=== PATIENT | male | born 1970 | race American Indian/Alaskan Native ===

== ENCOUNTER 2016-08-28 11:00 | Inpatient (IN) | payer BC, OTHER ==
[2016-08-28] MEDS ORDERED: DULCOLAX PR PRN (18:49)
[2016-08-28] MEDS ORDERED: TYLENOL PO PRN (18:49)
[2016-08-28] MEDS ORDERED: MILK OF MAGNESIA PO PRN (18:49)
[2016-08-28] MEDS ORDERED: DILAUDID IV PRN (18:49)
[2016-08-28] MEDS ORDERED: ZOFRAN IV PRN (18:49)
[2016-08-28] MEDS ORDERED: D5/0.45NS 1,000 ML IV SCH (19:00)
[2016-08-28] MEDS: PEPCID IV SCH (21:06)
--- NOTE | 2016-08-28 21:53 | Event Note ---
Date: 08/28/16 See H/p in reports Rt Ureteral stone Rt Hydronephrosis No Sig PMH Ureteral stone -2 yrs ago removed surgically
[2016-08-28 22:00] LABS: Basophils % (Auto) 0.4 % (0.0-1.8); Eosinophils % (Auto) 0.5 % (0.0-4.3); Hematocrit 43.3 % (35.5-45.6); Hemoglobin 14.4 gm/dl (11.8-15.2); Mean Corpuscular HGB Conc 33 % (32-34); Mean Corpuscular Hemoglobin 29 pg (28-32); Mean Corpuscular Volume 89 fl (84-94); Platelet Count 174 K/mm3 (140-440); Red Blood Count 4.88 M/mm3 (3.65-5.03); Red Cell Distribution Width 13.4 % (13.2-15.2); White Blood Count 5.8 K/mm3 (4.5-11.0)
[2016-08-28] MEDS ORDERED: APRESOLINE IV PRN (22:00)
[2016-08-28 22:16] LABS: Alanine Aminotransferase 23 units/L (7-56); Albumin/Globulin Ratio 1.3 %; Alkaline Phosphatase 42 units/L (35-129); Anion Gap 18 mmol/L; BUN/Creatinine Ratio 8.18; Blood Urea Nitrogen 9 mg/dL (9-20); Carbon Dioxide 27 mmol/L (22-30); Chloride 99.1 mmol/L (98-107); Glucose 91 mg/dL (75-100); Potassium 3.7 mmol/L (3.6-5.0); Sodium 140 mmol/L (137-145); Total Protein 7.2 g/dL (6.3-8.2)
[2016-08-28] MEDS: ROCEPHIN/NS 2 GM/100 ML 2 GM/100 ML BAG IV SCH (23:00)
[2016-08-28 23:03] LABS: Bilirubin,Urine NEG (Negative); Blood,Urine MOD (Negative); Ketones,Urine NEG (Negative); Leukocyte Esterase,Urine NEG (Negative); Mucus,Urine FEW /HPF; Nitrite,Urine NEG (Negative); Protein,Urine <15 mg/dL mg/dL (Negative); Urobilinogen,Urine < 2.0 mg/dL (<2.0)
[2016-08-29 05:23] LABS: Basophils % (Auto) 0.5 % (0.0-1.8); Eosinophils % (Auto) 0.8 % (0.0-4.3); Hematocrit 44.9 % (35.5-45.6); Hemoglobin 14.9 gm/dl (11.8-15.2); Mean Corpuscular HGB Conc 33 % (32-34); Mean Corpuscular Hemoglobin 29 pg (28-32); Mean Corpuscular Volume 88 fl (84-94); Platelet Count 185 K/mm3 (140-440); Red Cell Distribution Width 13.4 % (13.2-15.2); White Blood Count 6.1 K/mm3 (4.5-11.0)
[2016-08-29 06:15] LABS: Anion Gap 19 mmol/L; Blood Urea Nitrogen 9 mg/dL (9-20); Calcium 9.1 mg/dL (8.4-10.2); Carbon Dioxide 25 mmol/L (22-30); Chloride 102.7 mmol/L (98-107); Glucose 102 mg/dL (75-100); Potassium 4.2 mmol/L (3.6-5.0); Sodium 142 mmol/L (137-145)
[2016-08-29] MEDS ORDERED: XYLOCAINE MPF 2% ONE (07:20)
[2016-08-29] MEDS ORDERED: ZOFRAN ONE (07:20)
[2016-08-29] MEDS ORDERED: DECADRON ONE (07:20)
[2016-08-29] MEDS ORDERED: DIPRIVAN 10 MG/ML IV ONE (07:20)
--- NOTE | 2016-08-29 07:26 | Anesthesia Day of Surgery ---
Anesthesia Day of Surgery - Day of Surgery Patient Examined: Yes Patient H&P Reviewed: Yes Patient is NPO: Yes
--- NOTE | 2016-08-29 07:26 | Anesthesia Consultation ---
Anesthesia Consult and Med Hx Date of service: 08/29/16 - Airway Anesthetic Teeth Evaluation: Good ROM Head & Neck: Adequate Mental/Hyoid Distance: Adequate Mallampati Class: Class II Intubation Access Assessment: Probably Good - Pulmonary Exam CTA: Yes - Pre-Operative Health Status ASA Pre-Surgery Classification: ASA2 Proposed Anesthetic Plan: General - Pulmonary Hx Smoking: No Hx Asthma: No Hx Pneumonia: No Hx Sleep Apnea: No (not officially diagnosed) - Cardiovascular System Hx Hypertension: No (consistently elevated over the last few days) - Endocrine Hx Renal Disease: Yes (ureteral stones) Hx End Stage Renal Disease: No - Other Systems Hx Alcohol Use: Yes Hx Substance Use: No Hx Cancer: No Hx Obesity: Yes (BMI 34)
--- NOTE | 2016-08-29 07:54 | Consultation ---
History of Present Illness - Reason for Consult Consult date: 08/31/16 - History of Present Illness Patient 46 years old admitted with fevers hypertension pain with a stone right ureter 6mm. he was seen at a er [facility]. Creatinine elevated 1.5 there. Currently he has minimal flank pain improved with IV antibiotics with no fever. No radiating pain no exacerbating symptoms. Pain was mainly in right flank. No chest pain no shortness of breath no nausea vomiting diarrhea constipation. No current fevers or chills. Medications and Allergies Allergies Allergy/AdvReac Type Severity Reaction Status Date / Time PRUNE JUICE Allergy Severe Swelling Uncoded 03/27/14 07:43 Home Medications Medication Instructions Recorded Confirmed Last Taken Type Tamsulosin [Flomax] 1 tab PO DAILY 03/24/14 03/27/14 03/25/14 History Ciprofloxacin HCl [Ciprofloxacin 500 mg PO Q12H #14 tab 08/30/16 Unknown Rx TAB] Oxycodone HCl/Acetaminophen 1 tab PO BID PRN #10 tablet 08/30/16 Unknown Rx [Percocet 10/325 mg] Active Meds: Active Medications Acetaminophen (Tylenol) 650 mg PO Q4H PRN PRN Reason: Pain MILD(1-3)/Fever >100.5/LEE Bisacodyl (Dulcolax) 10 mg [place] QDAY PRN PRN Reason: Constipation unrelieved by MOM Famotidine (Pepcid) 20 mg IV BID [facility] Last Admin: 08/28/16 21:06 Dose: 20 mg Fentanyl (Sublimaze) 50 mcg IV Q5MIN PRN PRN Reason: Pain , Severe (7-10) Stop: 08/29/16 13:00 Hydralazine HCl (Apresoline) 10 mg IV Q2H PRN PRN Reason: GIVE FOR SBP>165 Hydromorphone HCl (Dilaudid) 1 mg IV Q3H PRN PRN Reason: Pain , Severe (7-10) Hydromorphone HCl (Dilaudid) 0.25 mg IV Q10MIN PRN PRN Reason: Pain, Moderate (4-6) Stop: 08/29/16 13:00 Dextrose/Sodium Chloride (D5/0.45ns) 1,000 mls @ 42 mls/hr IV DIRECT [facility] Last Admin: 08/28/16 20:55 Dose: 42 mls/hr Ceftriaxone Sodium (Rocephin/Ns 2 Gm/100 Ml) 2 gm in 100 mls @ 200 mls/hr IV Q24H [facility] PRN Reason: Protocol Last Admin: 08/28/16 23:00 Dose: 200 mls/hr Sodium Chloride (Nacl 0.9% 1000 Ml) 1,000 mls @ 100 mls/hr IV DIRECT [facility] Last Admin: 08/29/16 07:45 Dose: 100 mls/hr Magnesium Hydroxide (Milk Of Magnesia) 30 ml PO Q4H PRN PRN Reason: Constipation Ondansetron HCl (Zofran) 4 mg IV Q8H PRN PRN Reason: N/V unrelieved by Reglan Review of Systems Constitutional: fever, chills Genitourinary Male: flank pain Exam - Constitutional Vitals: Temp Pulse Resp BP Pulse Ox 98.9 F 64 18 157/97 97 08/29/16 00:00 08/29/16 00:00 08/29/16 00:00 08/29/16 00:00 08/29/16 00:00 General appearance: Present: no acute distress - EENT Eyes: Present: EOM intact ENT: hearing intact, clear oral mucosa - Neck Neck: Present: supple - Respiratory Respiratory effort: normal - Extremities Extremities: no ischemia, No edema - Abdominal General gastrointestinal: Present: soft, non-tender, non-distended - Psychiatric Psychiatric: appropriate mood/affect, intact judgment & insight - Neurologic Neurologic: moves all extremities Results - Labs CBC & Chem 7: 08/29/16 05:09 08/29/16 05:09 Labs: Abnormal lab results 08/28/16 08/29/16 08/29/16 Range/Units 20:48 05:09 05:09 RBC 5.10 H (3.65-5.03) M/mm3 Lymph % (Auto) 46.7 H 52.9 H (13.4-35.0) % [place] % (Auto) 10.3 H 9.1 H (0.0-7.3) % Seg Neutrophils % 36.7 L (40.0-70.0) % Glucose 102 H (75-100) mg/dL Assessment and Plan RIGHT URET STONE 6MM FEVER / AKD / PAIN - plan cysto, stent - - Stage for future treatment of stone disc must f/u
--- NOTE | 2016-08-29 07:55 | Post Operative Note ---
Date of procedure: 08/29/16 Pre-op diagnosis: right ureteral stone, fever, akd, pain, htn Post-op diagnosis: same Findings: same, uret stone Procedure: cysto, rpg, stent right; 6x28 Anesthesia: [place]ENT[place] Surgeon: RONY STREET Estimated blood loss: minimal Pathology: none Condition: stable Disposition: PACU
[2016-08-29] MEDS ORDERED: NACL 0.9% 1000 ML 1,000 ML IV SCH (08:00)
[2016-08-29] MEDS ORDERED: SUBLIMAZE IV PRN (08:00)
[2016-08-29] MEDS ORDERED: DILAUDID IV PRN (08:00)
--- NOTE | 2016-08-29 08:06 | Progress Note ---
Assessment and Plan Assessment and plan: --Right ureteral stone with hydronephrosis s/p right electric stent placement Continue IV fluids and pain medications and empiric antibiotics Follow cultures --DVT prophylaxis with Lovenox Disposition; closely monitor 24 hours and possible discharge home tomorrow if stable Plan of care discussed with the patient and family member at the bedside as well as the nurse History Interval history: Patient underwent urology procedure this morning Status post cystoscopy, retrograde pyelography, and right stent placement Patient feels better, no new complaints Alert awake oriented 3 not in acute distress Vital signs reviewed Hospitalist Physical - Constitutional Vitals: Temp Pulse Resp BP Pulse Ox 98.9 F 64 18 157/97 97 08/29/16 00:00 08/29/16 00:00 08/29/16 00:00 08/29/16 00:00 08/29/16 00:00 General appearance: Present: no acute distress, well-nourished, obese - EENT Eyes: Present: PERRL, EOM intact - Neck Neck: Present: supple, normal ROM - Respiratory Respiratory effort: normal Respiratory: negative: rales, rhonchi, wheezing - Cardiovascular Rhythm: regular Heart Sounds: Present: S1 & S2 - Extremities Extremities: no ischemia, pulses intact, pulses symmetrical Peripheral Pulses: within normal limits - Abdominal General gastrointestinal: soft, non-tender, non-distended, normal bowel sounds - Integumentary Integumentary: Present: clear, warm - Psychiatric Psychiatric: appropriate mood/affect, cooperative - Neurologic Neurologic: CNII-XII intact, moves all extremities Results - Labs CBC & Chem 7: 08/29/16 05:09 08/29/16 05:09 Labs: Laboratory Last Values WBC 6.1 K/mm3 (4.5-11.0) 08/29/16 05:09 RBC 5.10 M/mm3 (3.65-5.03) H 08/29/16 05:09 Hgb 14.9 gm/dl (11.8-15.2) 08/29/16 05:09 Hct 44.9 % (35.5-45.6) 08/29/16 05:09 MCV 88 fl (84-94) 08/29/16 05:09 MCH 29 pg (28-32) 08/29/16 05:09 MCHC 33 % (32-34) 08/29/16 05:09 RDW 13.4 % (13.2-15.2) 08/29/16 05:09 Plt Count 185 K/mm3 (140-440) 08/29/16 05:09 Lymph % (Auto) 52.9 % (13.4-35.0) H 08/29/16 05:09 [place] % (Auto) 9.1 % (0.0-7.3) H 08/29/16 05:09 Eos % (Auto) 0.8 % (0.0-4.3) 08/29/16 05:09 Baso % (Auto) 0.5 % (0.0-1.8) 08/29/16 05:09 Lymph # 3.2 K/mm3 (1.2-5.4) 08/29/16 05:09 [place] # 0.6 K/mm3 (0.0-0.8) 08/29/16 05:09 Eos # 0.0 K/mm3 (0.0-0.4) 08/29/16 05:09 Baso # 0.0 K/mm3 (0.0-0.1) 08/29/16 05:09 Seg Neutrophils % 36.7 % (40.0-70.0) L 08/29/16 05:09 Seg Neutrophils # 2.2 K/mm3 (1.8-7.7) 08/29/16 05:09 Sodium 142 mmol/L (137-145) 08/29/16 05:09 Potassium 4.2 mmol/L (3.6-5.0) 08/29/16 05:09 Chloride 102.7 mmol/L (98-107) 08/29/16 05:09 Carbon Dioxide 25 mmol/L (22-30) 08/29/16 05:09 Anion Gap 19 mmol/L 08/29/16 05:09 BUN 9 mg/dL (9-20) 08/29/16 05:09 Creatinine 1.2 mg/dL (0.8-1.5) 08/29/16 05:09 Estimated GFR > 60 ml/min 08/29/16 05:09 BUN/Creatinine Ratio 7.50 % 08/29/16 05:09 Glucose 102 mg/dL (75-100) H 08/29/16 05:09 Calcium 9.1 mg/dL (8.4-10.2) 08/29/16 05:09 Total Bilirubin 0.30 mg/dL (0.1-1.2) 08/28/16 20:48 AST 26 units/L (5-40) 08/28/16 20:48 ALT 23 units/L (7-56) 08/28/16 20:48 Alkaline Phosphatase 42 units/L (35-129) 08/28/16 20:48 Total Protein 7.2 g/dL (6.3-8.2) 08/28/16 20:48 Albumin 4.0 g/dL (3.9-5) 08/28/16 20:48 Albumin/Globulin Ratio 1.3 % 08/28/16 20:48 Urine Color Yellow (Yellow) 08/28/16 22:30 Urine Turbidity Clear (Clear) 08/28/16 22:30 Urine pH 7.0 (5.0-7.0) 08/28/16 22:30 Ur Specific [place] 1.014 (1.003-1.030) 08/28/16 22:30 Urine Protein <15 mg/dl mg/dL (Negative) 08/28/16 22:30 Urine Glucose (UA) Neg mg/dL (Negative) 08/28/16 22:30 Urine Ketones Neg mg/dL (Negative) 08/28/16 22:30 Urine Blood Mod (Negative) 08/28/16 22:30 Urine Nitrite Neg (Negative) 08/28/16 22:30 Urine Bilirubin Neg (Negative) 08/28/16 22:30 Urine Urobilinogen < 2.0 mg/dL (<2.0) 08/28/16 22:30 Ur Leukocyte Esterase Neg (Negative) 08/28/16 22:30 Urine WBC (Auto) 3.0 /HPF (0.0-6.0) 08/28/16 22:30 Urine RBC (Auto) 17.0 /HPF (0.0-6.0) 08/28/16 22:30 Urine Mucus Few /HPF 08/28/16 22:30
[2016-08-29] MEDS ORDERED: OMNIPAQUE 300 MG/50 ML (CATH LAB) IV ONE (08:15)
--- NOTE | 2016-08-29 09:01 | Post Anesthesia Evaluation ---
- Post Anesthesia Evaluation Patient Participated: Yes Airway Patent: Yes Stable Respiratory Function: Yes Temp > 96.8F: Yes Pain Manageable: Yes Adequeate Hydration: Yes Anesthesia Complications: No Block Receding Appropriately: Not Applicable
[2016-08-29] MEDS ORDERED: FLOMAX PO SCH (10:00)
--- NOTE | 2016-08-29 10:13 | History and Physical Report ---
CHIEF COMPLAINT: Right flank pain. HISTORY OF PRESENT ILLNESS: A 46-year-old male, pleasant came from Urologist's office for right ureter calculus with mild hydronephrosis. Ultrasound was done at the office. The patient was sent to [facility] for Direct admit. No fever, no chills. Pain 7 on a scale of 1-10. The patient had a similar episode 2 years ago . No fever, no chills. PAST MEDICAL HISTORY: Ureteral stone 1 to 2 years ago. PAST SURGICAL HISTORY: Unknown PERSONAL HISTORY: He does not smoke, alcohol very occasionally. FAMILY HISTORY: No hypertension, no diabetes. REVIEW OF SYSTEMS: Significant for right flank pain. No fever. No chills. A 14-point review of systems done. PHYSICAL EXAMINATION: GENERAL: Middle-aged male, cooperative during examination. VITAL SIGNS: Blood pressure is 141/92, temperature of 98.6, pulse is 76, respirations of 16. HEENT: Unremarkable. Pupils equal and reactive. NECK: Supple, no lymphadenopathy, no thyromegaly. LUNGS: Clear to auscultation and percussion. Good air entry. CARDIOVASCULAR: S1, S2 heard. No gallop, no murmur, no rub. Apical impulse in left fifth intercostal space and midclavicular line. ABDOMEN: Soft and benign. No hepatosplenomegaly. No guarding, no rigidity. Hernial orifices are normal. EXTREMITIES: Good pedal pulses. No pedal edema. CENTRAL NERVOUS SYSTEM: Alert and oriented x 4. Nonfocal exam. SKIN: Normal. LABORATORY DATA: White count is 5800, H and H is 14.4 and 43.3, platelet count is 174,000. Electrolytes are normal. Urine significant for 17 RBCs, WBC 3.0. ASSESSMENT AND PLAN: 1. Right ureteral stone, to be removed. Hydronephrosis present. The patient to get the procedure done in a.m. 2. Mild hydronephrosis, should be cleared with removal of the stone. Right kidney should not be damaged because of partial obstruction. 3. Urinary tract infection, unlikely, but we will start him on Rocephin 2 grams IV piggyback every 24 hours and stop once the procedure is done and the urine is cleared. 4. Deep venous thrombosis prophylaxis. Lovenox 40 mg Sq qd [facility]# [id number] JAVIER/GEOFF BESS
[2016-08-29] MEDS: PEPCID IV SCH ×2 (13:28→21:32)
[2016-08-29] MEDS: ROCEPHIN/NS 2 GM/100 ML 2 GM/100 ML BAG IV SCH (21:32)
--- NOTE | 2016-08-30 03:21 | Admit Criteria Form ---
Admission Criteria Documentation: UROLOGIC DISEASE G Clinical Indications for Admission to Inpatient Care (Place ' X' for any and all applicable criteria): Hospital admission is needed for appropriate care of the patient because of 1 or more of the following: [ ]I. New-onset Reduced urine output, or hydronephrosis remaining after emergency or observation level care (as appropriate ) [ ]II. Renal disease needing inpatient care indicated by 1 or more of the following(2)(3)(4): [ ]a) Acute renal failure [ ]b) Significant uremic complications [ ]c) Acute kidney injury (that does not qualify as Acute renal failure ) requiring inpatient care indicated by ALL of the following(5)(6)(7)(8) (9): [ ]i) Worsening clinical status (eg, rising creatinine) despite outpatient and observation care treatment (eg, hydration) [ ]ii) Acute kidney injury indicated by 1 or more of the following: [ ]1) 2-fold or more rise in serum creatinine from baseline [ ]2) Reduction of more than 50% in estimated glomerular filtration rate from baseline [ ]3) Urine output less than 0.5 mL/kg/hr for 12 hours despite adequate volume status [ ]d) Systemic cause (eg, Goodpasture syndrome ) needing inpatient care [ ]e) Rapidly progressive renal disease needing inpatient care (eg, plasmapheresis, immunosuppression ) Anasarca needing inpatient care [ ]f) Hemoptysis [ ]g) Hemolysis, thrombosis, or infraction [ ]h) Anasarca needing inpatient care [ ]III. New-onset or uncontrolled nephrogenic diabetes insipidus [X ]IV. Urologic infection requiring inpatient care as indicated by 1 or more of the following(10)(11)(12): [ ]a) Hemodynamic instability [ ]b) Dehydration that is severe or persistent [ ]c) Failure of outpatient treatment [ ]d) Steve's gangrene [ ]e) Urinary obstruction [ ]f) Immunocompromised state (eg, chronic steroid use ) [ X]g) Known renal or urologic abnormalities(eg, indwelling catheter , structural abnormalities ) [ X]h) Recent urologic manipulation or procedure Urinary obstruction [ ]i) Abscess requiring drainage Immunocompromised state [ ]V. Acute urinary retention requiring inpatient management as indicated by ANY ONE of the following(1)(13): [ ]a) Retention cannot be alleviated via emergency or observation level care (eg, urinary catheter placement) [ ]b) Hemodynamic instability [ ]c) Acute neurologic etiology (eg, cauda equina) [ ]d) Dehydration or other complications not manageable with emergency or observation level care [ ]e) Acute kidney injury (that does not qualify as Acute renal failure ) requiring inpatient care indicated by ALL of the following(5)(6)(7)(8) (9): [ ]i) Acute kidney injury indicated by ANY ONE of the following: [ ]1) 2-fold or more rise in serum creatinine from baseline [ ]2) Reduction of more than 50% in estimated glomerular filtration rate from baseline [ ]ii) Worsening clinical status (eg, rising creatinine) despite outpatient and observation care treatment (eg, hydration) [ ]. Gross hematuria requiring inpatient management as indicated by ANY ONE of the following(1)(2): [ ]a) Evidence of renal obstruction [ ]b) Reduced urine output [ ]c) Clot retention after urinary catheterization and irrigation [ ]d) Severe Anemia [ ]e) Systemic cause needing inpatient treatment (eg, Goodpasture syndrome) [ ]VII. Priapism not responsive to emergency or observation care treatment [ ]VII. Scrotal, testicular, or epididymal disorder requiring inpatient care indicated by 1 or more of the following(1)(14)(15)(16): [ ]a) Scrotal edema or infection not manageable with emergency or observation level care [ ]b) Orchitis not manageable with emergency or observation level care [ ]c) Epididymitis not manageable with emergency or observation level of care [ ]d) Other scrotal, testicular, or epididymal disorder (eg, infection, inflammation) not manageable with emergency or observation level care [ ]IX. Complications of transplanted kidney indicated by 1 or more of the following [ ]a) Acute graft rejection requiring inpatient management (eg, intravenous immunosuppression) [ ]b) Acute kidney injury indicated by ALL of the following i) Acute kidney injury indicated by 1 or more of the following 1) 2-fold or more rise in serum creatinine from baseline 2) Reduction of more than 50% in estimated glomerular filtration rate from baseline 3) Urine output less than 0.5 mL/kg/hr for 12 hours despite adequate volume status ii) Kidney injury too severe or not responsive to outpatient and observation care treatment (eg, hydration) [ ]c) Infection requiring inpatient management (eg, Hemodynamic instability, need for intravenous antimicrobial treatment) [ ]d) Other complication of transplanted kidney requiring patient management (eg, severe diarrhea leading to malabsorption) [ ]X. Trauma to renal, genital, or urologic system requiring inpatient medical care [ ]XI. Urologic Disease condition, symptom, or finding for which emergency and observation care have failed or are not considered appropriate. The original [employer] content created by [employer] has been revised. The portions of the content which have been revised are identified through the use of italic text or in bold, and [facility] has neither reviewed nor approved the modified material. All other unmodified content is copyright [facility]. Please see references footnoted in the original [facility] edition 2016 Admission Criteria Met: Yes
[2016-08-30 07:37] VITALS: BP 140/84
--- NOTE | 2016-08-30 09:30 | Discharge Summary ---
Providers - Providers Date of Admission: 08/28/16 19:25 Date of discharge: 08/30/16 Attending physician: ELMER GEORGE 08/28/16 18:49 Consult to Physician [CONS] Routine Consulting Provider: RONY STREET Reason For Exam: Rt Hydronephrosis Place consult to:: DR. STREET Notified:: DR. STREET Phone number called:: [phone] Was contact made?: Yes Time called:: 08:04 Comment:: CONSULT COMPLETED - [place] Primary care physician: KEATON ARRIAGA Hospitalization Reason for admission: right flank pain Condition: Good Procedures: Cystoscopy, bilateral retrograde pyelography, insertion of right ureteral stent Hospital course: Final diagnosis; Right ureteral stone with hydronephrosis Status post right ureteric stent placement Right flank pain and 46-year-old -[place]ir[place] male patient was admitted through emergency room with right flank pain patient was seen by urologist in the office for right ureteric calculus with hydronephrosis on ultrasound patient was admitted subsequently evaluated by urologist and underwent stent placement Also had mild urinary tract infection received IV antibiotics Patient's symptoms significantly improved The day of discharge patient was comfortable no new complaints Cleared by urologist for discharge, vital signs are stable, [id number] evaluation and physical examination was unremarkable Disposition: TO HOME OR SELFCARE Time spent for discharge: 31 min Core Measure Documentation - Palliative Care Palliative Care/ Comfort Measures: Not Applicable - Core Measures Any of the following diagnoses?: none Exam - Constitutional Vitals: Temp Pulse Resp BP Pulse Ox 98.3 F 69 20 140/84 97 08/30/16 07:30 08/30/16 07:30 08/30/16 07:30 08/30/16 07:30 08/30/16 07:30 General appearance: Present: no acute distress, well-nourished - EENT Eyes: Present: PERRL, EOM intact - Neck Neck: Present: supple, normal ROM - Respiratory Respiratory effort: normal Respiratory: negative: rales, rhonchi, wheezing - Cardiovascular Rhythm: regular Heart Sounds: Present: S1 & S2 - Extremities Extremities: no ischemia, pulses intact, pulses symmetrical Peripheral Pulses: within normal limits - Abdominal General gastrointestinal: Present: soft, non-tender, non-distended, normal bowel sounds - Integumentary Integumentary: Present: clear, warm - Musculoskeletal Musculoskeletal: strength equal bilaterally - Psychiatric Psychiatric: appropriate mood/affect, cooperative - Neurologic Neurologic: CNII-XII intact, moves all extremities Plan Activity: no restrictions Diet: regular Additional Instructions: Plenty oral fluids Follow up with: KEATON ARRIAGA MD [Primary Care Provider] - [address] MD [Staff Physician] - 7 Days Prescriptions: Ciprofloxacin HCl [Ciprofloxacin TAB] 500 mg PO Q12H #14 tab Oxycodone HCl/Acetaminophen [Percocet 10/325 mg] 1 tab PO BID PRN #10 tablet PRN Reason: Pain
--- NOTE | 2016-08-30 10:34 | Fluoroscopy Report ---
Findings: History of right ureteral stone. 12 fluoroscopic images were captured during retrograde urography by Dr. Street. The left pyelogram is normal. The right pyelogram demonstrates mild right hydronephrosis and proximal right ureteral stone. Subsequent images demonstrate placement of a right ureteral stent which is in good position on the final image and adequately drains the right renal collecting system. Please correlate with the procedural report by Dr. Street.
--- NOTE | 2016-08-31 16:11 | Operative Report ---
This is a urology operative note. PREOPERATIVE DIAGNOSES: 1. Fever. 2. Hypertension. 3. Acute renal insufficiency. 4. Pain. 5. Right ureteral 6 mm stone with hydro. POSTOPERATIVE DIAGNOSES: 1. Fever. 2. Hypertension. 3. Acute renal insufficiency. 4. Pain. 5. Right ureteral 6 mm stone with hydro. PROCEDURE: Cystoscopy, bilateral RPG, right 6 x 28 double-J stent placement. SURGEON: Cali Street MD ANESTHESIA: General. SPECIMENS: None. ESTIMATED BLOOD LOSS: Minimal. COMPLICATIONS: None. FINDINGS: Right moderate calyceal definitive dilation with very proximal mild hydroureter with a very narrow caliber ureter. CLINICAL INDICATIONS: The patient had been seen in the Emergency Room at [facility]. He was seen in my office at [place] after making an appointment for continued symptoms. He was evaluated due to the findings and preoperative diagnoses, it was elected to admit him for IV antibiotics and plan for stent placement and monitoring especially for his high blood pressure and to make sure his blood pressure was under control by the medical service. DESCRIPTION OF PROCEDURE: He had antibiotics and SCDs. He was transferred to OR suite in supine position, anesthesia, dorsal lithotomy, prepped and draped in standard fashion. A 22-[place] scope passed, normal penile, bulbar prostatic urethra were mild large upon entering bladder. Pancystoscopy 30 and 70. Left retrograde pyelogram within normal limits. Right UO cannulated 8 [place] cone-tipped catheter, contrast injected. Right distal ureter and mid ureter appeared to have a very narrow caliber ureter, just below the UPJ the ureter was mildly dilated with long infundibulum bifurcating to the upper pole and then the lower pole, but there is definitive moderate to high grade calyceal dilation especially when compared to the left. At this point, a 0.035 Glidewire was passed up to the upper pole. Upon manipulation maneuver this was placed in and out, you could see this scroll within the upper pole and flex within the boundaries of the contrast, and this is definitively within the upper pole and within the ureter. At this point, the 6 x 28 double-J stent was passed over the wire under direct and fluoroscopic visualization with stent was passed. When we reached the proximal ureter, there was a significant amount resisted which seemed consistent with probably an impacted stone. This did pass beyond this and along the course of the ureter. Once again this did pass to the upper pole and you could see it moving within the boundaries of the long infundibulum from medial to lateral and then curling, curving all within the boundaries of the contrast. At this point, the wire was removed. Inspection of the ports of the distal K, there was definitive efflux of contrast coming down from the retrograde from the ports. At this point the scope was withdrawn. Exam under anesthesia demonstrated bilateral testicles with no masses, digital rectal exam, prostate no nodules. The patient was awakened, transferred to PACU in good and stable condition. JOB# [id number] ATS/NTS
== END 2016-08-30 11:23 | disposition home or self-care (01) | DRG 694 ==
LOC: 3A 17:43 → UNDOADMIN 17:43 → 2B-SURG 19:25
PROVIDERS: ADMIT Internal Medicine; ATTEND Internal Medicine
PROC: 0T768DZ Dilation of Right Ureter with Intraluminal Device, Via Natural or Artificial Opening Endoscopic (ICD-10-PCS; principal; 2016-08-29)
DX: N13.2 Hydronephrosis with renal and ureteral calculous obstruction (principal); N28.9 Disorder of kidney and ureter, unspecified; Z91.018 Allergy to other foods
CPT/HCPCS: 36415; 74420; 80048; 80053; 81001; 85025; 87086; C1758; C1769; C2617; J0696; J1100; J2405; J2704; J7030; Q9967